=== PATIENT | female | born 1995 | race African-American/Black ===

== ENCOUNTER 2017-10-22 10:30 | Emergency (ER) | payer BC ==
[2017-10-22 10:38] VITALS: BP 119/81
--- NOTE | 2017-10-22 10:58 | ED ---
GI/ HPI - HPI Summary HPI Summary: This is scribe Vane Ball documenting for attending Vimal Black M.D. Pt is a 22 y/o F who presents to [facility] c/o vaginal bleeding. She states she recently started a new control patch 2 months ago, and since has been having symptoms. Her symptoms include sore hips, mood swings, elevated temperature, and increased urinary frequency/urgency. She believed she became after having sexual relations with her boyfriend 1 month ago, but all 7 tests were negative. LKMP 1 month ago, and she denies missing any periods. 3 days ago, she thought she had a miscarriage, because she had bad cramping then a clear blood clot with a string attached in her underwear 2 hours later. She then started bleeding heavily after. Pt states the test before beginning control was negative. She was sent here by her PCP. Pt denies any medications or smoking. - History of Current Complaint Chief Complaint: EDOBProblems Time Seen by Provider: 10/22/17 10:41 Stated Complaint: VAGINAL BLEEDING Hx Obtained From: Patient Onset/Duration: Started Days Ago - 3, Resolved Vaginal Bleeding Description: Clots Pain Intensity: 0 Location of Pain: None Associated Signs and Symptoms: Positive: Other: - Increased urinary frequency, mood swings, elevated temperature, sore hips Additional Signs & Symptoms: Positive: Vaginal Bleeding, Other: - 7 negative tests, recent new control patch Aggravating Factor(s): Nothing Alleviating Factor(s): Nothing - Allergy/Home Medications Allergies/Adverse Reactions: Allergies Allergy/AdvReac Type Severity Reaction Status Date / Time azithromycin [From Zithromax] Allergy Hives Verified 10/22/17 10:34 promethazine Allergy See Comment Verified 10/22/17 10:34 PMH/Surg Hx/FS Hx/Imm Hx History: Denies: Other Problems/Disorders - Neurological History: Reports: Hx Seizures Infectious Disease History: No Infectious Disease History: Reports: Traveled Outside the [place] in Last 30 Days - [place] - Family History Known Family History: Negative: Blood Disorder - Social History Alcohol Use: Occasionally Hx Substance Use: No Substance Use Type: Reports: None Hx Tobacco Use: No Smoking Status (MU): Never Smoked Tobacco Review of Systems Positive: Other - Mood swings, elevated temperature Positive: frequency, urgency, other - Vaginal bleeding and "clots" Positive: Arthralgia - Hips sore All Other Systems Reviewed And Are Negative: Yes Physical Exam - Summary Physical Exam Summary: Appearance: Well appearing, no pain distress Skin: warm, dry, reflects adequate perfusion Head/face: normal Eyes: EOMI, CLAIRE ENT: normal Neck: supple, non-tender Respiratory: CTA, breath sounds present Cardiovascular: RRR, pulses symmetrical Abdomen: non-tender, soft Bowel Sounds: present Musculoskeletal: normal, strength/ROM intact Neuro: normal, sensory motor intact, A&Ox3 Triage Information Reviewed: Yes Vital Signs On Initial Exam: Initial Vitals Temp Pulse Resp BP Pulse Ox 98.9 F 72 16 119/81 99 10/22/17 10:32 10/22/17 10:32 10/22/17 10:32 10/22/17 10:32 10/22/17 10:32 Vital Signs Reviewed: Yes Diagnostics - Vital Signs Vital Signs Temp Pulse Resp BP Pulse Ox 10/22/17 10:32 98.9 F 72 16 119/81 99 - Laboratory Lab Statement: Any lab studies that have been ordered have been reviewed, and results considered in the medical decision making process. GIGU Course/Dx - Course Course Of Treatment: Patient is be positive has a Quant hCG of 0. This is very unlikely to be related and much more likely to be a side effect of her new blood pressure medication. She is discharged to follow up with her doctor. - Diagnoses Provider Diagnoses: Menstrual irregularity Discharge - Sign-Out/Discharge Documenting (check all that apply): Patient Departure - Discharge - Discharge Plan Condition: Good Disposition: HOME Referrals: Adonis Zamora DO [Primary Care Provider] - Additional Instructions: Call me in 90 minutes to review results. Continue control patch. Return if worse, new symptoms or other concerns. - Billing Disposition and Condition Condition: GOOD Disposition: Home
== END 2017-10-22 11:21 | disposition home or self-care (01) ==
LOC: ED 10:30
DX: N92.6 Irregular menstruation, unspecified (principal); Z88.3 Allergy status to other anti-infective agents; Z88.8 Allergy status to other drugs, medicaments and biological substances
CPT/HCPCS: 36415; 84702; 86900; 86901; 99281

== ENCOUNTER 2018-11-13 15:53 | Emergency (ER) | payer BC ==
--- OUTSIDE RECORDS SUMMARY | 2018-11-13 16:08 | XMS REPORT | Summary of Care ---
:1995 Author Organization [facility] Address [address] [address] Care Team Providers Name Role Phone Adonis Zamora DO Primary Care Provider Reason for Referral Refer to Department Only (Routine) Status Reason Specialty Diagnoses / Referred By Referred To Procedures Contact Contact Pending Review NEUROLOGY Diagnoses Difficulty concentrating [place] of [place] [address] [place] [id number] Evaluate and Establish Treatment Plan (Routine) Status Reason Specialty Diagnoses / Referred By Referred To Procedures Contact Contact Pending Review PSYCHIATRY Diagnoses Difficulty concentrating History of seizure Adonis Zamora DO [address] [place] [address] Reason for Visit Reason Comments Numbness number toes on right foot; left foot more tingly; sleep cycle, lack of focus and will be starting school soon. Encounter Details Date Type Department Care Team Description 10/31/2018 Office Visit Adonis Benjamin DO Correia's neuroma of both feet (Primary Dx); [facility] Difficulty concentrating; [address] [place] [address] [place] [address] [phone] Allergies Active Allergy Reactions Severity Noted Date Comments Promethazine Other 09/18/2017 Seizures Azithromycin Rash 09/18/2017 documented as of this encounter (statuses as of 11/13/2018) Medications Medication Sig Dispensed Refills Start Date End Date Status Etonogestrel Inject 68 mg 0 Active (NEXPLANON) 68 MG beneath the Subcutaneous Implant skin. Norelgestromin-Eth Place 1 Patch 9 Patch 5 11/16/2017 10/31/2018 Discontinued Estradiol (XULANE) onto skin 150-35 MCG/24HR EVERY 7 DAYS. Transdermal PATCH WEEKLY (6mg-0.75mg)Indicati ons: Encounter for contraceptive management, unspecified type documented as of this encounter (statuses as of 11/13/2018) Active Problems Problem Noted Date Hypoglycemia Overview: symptomatic. eats frequenly to avoid this issue documented as of this encounter (statuses as of 11/13/2018) Immunizations Name Administration Dates Next Due Hepatitis A Vaccine-Adult 10/16/2017 MMR VACCINE 10/16/2017 TDAP Vaccine 10/16/2017 documented as of this encounter Social History Tobacco Use Types Packs/Day Years Used Date Never Smoker Smokeless Tobacco: Never Used Alcohol Use Drinks/Week oz/Week Comments Yes every other sunday: 6 drinks Sex Assigned at Date Recorded Not on file Job Start Date Occupation Industry Not on file Not on file Not on file Travel History Travel Start Travel End No recent travel history available. documented as of this encounter Last Filed Vital Signs Vital Sign Reading Time Taken Comments Blood Pressure 118/58 10/31/2018 2:52 PM EDT Pulse 78 10/31/2018 2:52 PM EDT Temperature - - Respiratory Rate - - Oxygen Saturation 99% 10/31/2018 2:52 PM EDT Inhaled Oxygen Concentration - - Weight 102.4 kg (225 lb 12.8 oz) 10/31/2018 2:52 PM EDT Height 167.6 cm (5' 6") 10/31/2018 2:52 PM EDT Body Mass Index 36.45 10/31/2018 2:52 PM EDT documented in this encounter Patient Instructions Patient InstructionsAdonis Zamora DO - 10/31/2018 2:40 PM EDTRecommend trial of over the counter inserts: Sole ( found at [employer]), Spenco/Vasyli (found at [employer]), Superfeet (found at [employer]); make sure to be able to try these on in the store. documented in this encounter Progress Notes Adonis Zamora DO - 10/31/2018 2:40 PM EDT PATIENT: Karlene Encarnacion : 1995 DATE OF SERVICE: 10/31/2018 CHIEF COMPLAINT: Chief Complaint Patient presents with Numbness number toes on right foot; left foot more tingly; sleep cycle, lack of focus and will be starting school soon. Subjective HISTORY OF PRESENT ILLNESS: Karlene Encarnacion is a 23-y.o. female. HPI About 2 weeks ago went to visit [place] Drank a lot and was wearing heels for few days (not used to it) and then had burning pain and numbness in 2nd and 3rd toes both sides Stopped drinking and wearing wide shoes and it has almost diminished in left and right side 50% less No falls or traumas No swelling or redness of foot No diabetes from prior blood work. 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 eats frequenly to avoid this issue Petit mal convulsion (HCC) cleared grade 6. none since then Family History Problem Relation Age of Onset Cancer Maternal Grandfather pancreatic Current Outpatient Medications Medication Sig Etonogestrel (NEXPLANON) 68 MG Subcutaneous Implant Inject 68 mg beneath the skin. No current facility-administered medications for this visit. Allergies Allergen Reactions Promethazine Other Seizures Zithromax [Azithromycin] Rash Social History Socioeconomic History Marital status: Single Spouse name: Not on file Number of children: Not on file Years of education: Not on file Highest education level: Not on file Occupational History Not on file Social Needs Financial resource strain: Not on file Food insecurity: Worry: Not on file Inability: Not on file Transportation needs: Medical: Not on file Non-medical: Not on file Tobacco Use Smoking status: Never Smoker Smokeless tobacco: Never Used Substance and Sexual Activity Alcohol use: Yes Comment: every other sunday: 6 drinks Drug use: No Sexual activity: Yes Partners: Male, Female Lifestyle Physical activity: Days per week: Not on file Minutes per session: Not on file Stress: Not on file Relationships Social connections: Talks on phone: Not on file Gets together: Not on file Attends mosque service: Not on file Active member of club or organization: Not on file Attends meetings of clubs or organizations: Not on file Relationship status: Not on file Intimate partner violence: Fear of current or ex partner: Not on file Emotionally abused: Not on file Physically abused: Not on file Forced sexual activity: Not on file Other Topics Concern Not on file 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 Gastrointestinal: Negative for abdominal pain. Objective PHYSICAL EXAM: VITALS: BP 118/58 (BP Location: Left arm, Patient Position: Sitting) | Pulse 78 | Ht 5' 6" (1.676m) | Wt 225 lb 12.8 oz (102.4 kg) | SpO2 99% | BMI 36.45 kg/m Body mass index is 36.45 kg/m. Physical Exam Constitutional: She appears well-developed and well-nourished. No distress. Skin: She is not diaphoretic. Monofilament test shows intact sensation in feet. No joint tenderness, edema, cyanosis of feet Radial pulse palpable both sides No pain today in feet today on palpation ASSESSMENT / IMPRESSION: ICD-9-CM ICD-10-CM 1. 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 Difficulty concentrating 799.51 R41.840 REFER TO PSYCHIATRY REFER TO NEUROLOGY 3. History of seizure V12.49 Z87.898 REFER TO PSYCHIATRY REFER TO NEUROLOGY Correia neuroma by history. Already getting better. Try inserts to expedite recovery. Need to determine if add or adhd. If it is then is it safe to do medications because the effective ones can lower seizure threshold. Therefore, I am referring to both psych and neurology to coordinate this care. Plan Patient Instructions Recommend trial of over the counter inserts: Sole ( found at [employer]), Spenco/ Vasyli (found at [employer]), Superfeet (found at [employer]); make sure to be able to try these on in the store. Author: Adonis Zamora DO 11/13/2018 14:01 documented in this encounter Plan of Treatment Name Type Priority Associated Diagnoses Order Schedule REFER TO PSYCHIATRY Referral Routine Difficulty concentrating Expected: 11/13/2018, History of seizure Expires: 11/14/2019 REFER TO NEUROLOGY Referral Routine Difficulty concentrating Expected: 11/13/2018, History of seizure Expires: 11/14/2019 Health Maintenance Due Date Last Done Comments CHLAMYDIA SCREENING 1997 PAP SMEAR 1997 DEPRESSION SCREENING 2009 HIV SCREENING 2012 HPV IMMUNIZATION SERIES (1 - Female 2012 3-dose series) INFLUENZA VACCINE (#1) 2018 MENINGOCOCCAL VACCINE IMM Aged Out No longer eligible based on patient's age to complete this topic PNEUMOCOCCAL 0-64 YRS Aged Out No longer eligible based on patient's age to complete this topic documented as of this encounter Results Not on filedocumented in this encounter Visit Diagnoses Diagnosis Correia's neuroma of both feet - Primary Difficulty concentrating Other general symptoms History of seizure documented in this encounter Insurance Payer Benefit Plan / Subscriber ID Effective Dates Phone Address Type Group [facility] xxxxxxxxxxxx 2016-Present Blue [employer]/Blue [employer] (Work) documented as of this encounter
[2018-11-13 18:12] LABS: ABS Basophils 0.1 10^3/ul (0-0.2); ABS Lymphocytes 2.2 10^3/ul (1.0-4.8); ABS Monocytes 0.6 10^3/ul (0-0.8); Eosinophil % 0.2 %; Hematocrit 41 % (35-47); Hemoglobin 13.5 g/dL (12.0-16.0); Lymphocyte % 27.9 %; Mean Corpuscular HGB Conc 33 g/dL (31-36); Mean Corpuscular Hemoglobin 26 pg (27-31); Mean Corpuscular Volume 79 fL (80-97); Mean Platelet Volume 7.8 fL (7.4-10.4); Platelet Count 271 10^3/uL (150-450); Red Blood Count 5.14 10^6 /uL (3.70-4.87); Red Cell Distribution Width 15 % (10-15); White Blood Count 7.9 10^3/uL (3.5-10.8)
[2018-11-13 18:31] LABS: ALT 22 U/L (7-52); AST 19 U/L (13-39); Albumin 4.4 g/dL (3.2-5.2); Albumin/Globulin Ratio 1.2 (1-3); Alkaline Phosphatase 109 U/L (34-104); Anion Gap 5 mmol/L (2-11); BUN/Creatinine Ratio 12.2 (8-20); Blood Urea Nitrogen 10 mg/dL (6-24); C Reactive Protein 9.63 mg/L (<8.01); CO2 Carbon Dioxide 28 mmol/L (22-32); Calcium 9.4 mg/dL (8.6-10.3); Chloride 104 mmol/L (101-111); EGFR African American 106.5 (>60); Globulin 3.6 g/dL (2-4); Glucose 112 mg/dL (70-100); Magnesium 1.9 mg/dL (1.9-2.7); Potassium 4.2 mmol/L (3.5-5.0); Sodium 137 mmol/L (135-145)
[2018-11-13 18:36] LABS: HCG Pregnancy < 0.60 mIU/mL
[2018-11-13 18:42] LABS: Alcohol < 10 mg/dL (<10)
[2018-11-13 18:55] LABS: Urine Bacteria 1+ (Absent); Urine Red Blood Cell Trace(0-2/hpf) (Absent); Urine Squamous Epithelial Cell Present (Absent); Urine White Blood Cell Trace(0-5/hpf) (Absent)
[2018-11-13 18:56] LABS: TSH (Thyroid Stimulating Horm) 0.83 mcIU/mL (0.34-5.60)
[2018-11-13 19:01] LABS: Urine Appearance Cloudy; Urine Bilirubin Negative (Negative); Urine Blood 1+ (Negative); Urine Color Straw; Urine Glucose Negative (Negative); Urine Ketones Negative (Negative); Urine Nitrite Negative (Negative); Urine Protein Negative (Negative); Urine Specific Gravity 1.009 (1.010-1.030); Urine Urobilinogen Negative (Negative)
[2018-11-13 19:17] LABS: Urine Benzodiazepine Screen None Detected (None Detect); Urine Opiates Screen None Detected (None Detect)
--- NOTE | 2018-11-13 19:52 | ED ---
Complex/Multi-Sys Presentation - HPI Summary HPI Summary: Patient complains of constant twitching of left eyelid 2 days, twitching of intermittent bilateral upper extremities and bilateral lower extremities 2 days , lightheadedness with standing up from seated position starting yesterday. Denies any other pain injury or symptoms. History of seizures when she was a child. No seizure for years. Not taking medication for seizures. Denies other medical history. - History Of Current Complaint Chief Complaint: EDGeneral Time Seen by Provider: 11/13/18 17:51 Hx Obtained From: Patient Onset/Duration: Sudden Onset, Lasting Days Timing: Constant, Intermittent, Lasting: Severity Currently: Mild Severity Initially: Mild Location: Negative - Allergies/Home Medications Allergies/Adverse Reactions: Allergies Allergy/AdvReac Type Severity Reaction Status Date / Time azithromycin [From Zithromax] Allergy Hives Verified 11/13/18 16:04 promethazine Allergy See Comment Verified 11/13/18 16:04 Home Medications: Home Medications Etonogestrel [Nexplanon] 68 mg IMPLANT SEE INSTRUCTIONS 11/13/18 [History Confirmed 11/13/18] PMH/Surg Hx/FS Hx/Imm Hx Endocrine/Hematology History: Denies: Hx Anticoagulant Therapy Cardiovascular History: Denies: Hx Pacemaker/ICD History: Denies: Hx Dialysis, Other Problems/Disorders - Sensory History: Denies: Hx Legally Blind Opthamlomology History: Denies: Hx Eye Prosthesis EENT History: Denies: Hx Deafness Neurological History: Reports: Hx Seizures Infectious Disease History: No Infectious Disease History: Denies: Traveled Outside the [place] in Last 30 Days - Family History Known Family History: Negative: Blood Disorder - Social History Alcohol Use: None Hx Substance Use: No Substance Use Type: Reports: Marijuana Hx Tobacco Use: No Smoking Status (MU): Light Every Day Tobacco Smoker Review of Systems Positive: Fatigue Eyes: Negative ENT: Negative Cardiovascular: Negative Respiratory: Negative Gastrointestinal: Negative Genitourinary: Negative Musculoskeletal: Negative Skin: Negative Positive: Paresthesia Psychological: Normal All Other Systems Reviewed And Are Negative: Yes Physical Exam - Summary Physical Exam Summary: Neuro exam normal. Lung sounds clear to auscultation bilaterally. Abdomen soft nontender. No twitching of eyelid, bilateral upper extremities or bilateral lower extremities observed during stay in ED. Triage Information Reviewed: Yes Vital Signs On Initial Exam: Initial Vitals Temp Pulse Resp BP Pulse Ox 97.0 F 80 16 146/96 99 11/13/18 15:58 11/13/18 15:58 11/13/18 15:58 11/13/18 15:58 11/13/18 15:58 Vital Signs Reviewed: Yes Appearance: Positive: Well-Appearing Skin: Positive: Warm Head/Face: Positive: Normal Head/Face Inspection Eyes: Positive: Normal Neck: Positive: Supple Respiratory/Lung Sounds: Positive: Clear to Auscultation Cardiovascular: Positive: Normal Abdomen Description: Positive: Nontender Musculoskeletal: Positive: Normal Neurological: Positive: Normal Psychiatric: Positive: Normal AVPU Assessment: Alert - Abernathy Coma Scale Best Eye Response: 4 - Spontaneous Best Motor Response: 6 - Obeys Commands Best Verbal Response: 5 - Oriented Coma Scale Total: 15 Diagnostics - Vital Signs Vital Signs Temp Pulse Resp BP Pulse Ox 11/13/18 19:00 86 97 11/13/18 18:28 82 117/82 98 11/13/18 18:24 83 130/91 11/13/18 18:22 130/91 11/13/18 18:20 86 133/82 99 11/13/18 18:18 85 130/73 98 11/13/18 18:17 74 99 11/13/18 17:57 123/93 11/13/18 15:58 97.0 F 80 16 146/96 99 - Laboratory Lab Results: Lab Results 11/13/18 11/13/18 11/13/18 Range/Units 18:06 18:06 18:43 WBC 7.9 (3.5-10.8) 10^3/uL RBC 5.14 H (3.70-4.87) 10^6 /uL Hgb 13.5 (12.0-16.0) g/dL Hct 41 (35-47) % MCV 79 L (80-97) fL MCH 26 L (27-31) pg MCHC 33 (31-36) g/dL RDW 15 (10-15) % Plt Count 271 (150-450) 10^3/uL MPV 7.8 (7.4-10.4) fL Neut % (Auto) 63.9 % Lymph % (Auto) 27.9 % [place] % (Auto) 7.2 % Eos % (Auto) 0.2 % Baso % (Auto) 0.8 % Absolute Neuts (auto) 5.0 (1.5-7.7) 10^3/ul Absolute Lymphs (auto) 2.2 (1.0-4.8) 10^3/ul Absolute Monos (auto) 0.6 (0-0.8) 10^3/ul Absolute Eos (auto) 0.0 (0-0.6) 10^3/ul Absolute Basos (auto) 0.1 (0-0.2) 10^3/ul Absolute Nucleated RBC 0.0 10^3/ul Nucleated RBC % 0.0 Sodium 137 (135-145) mmol/L Potassium 4.2 (3.5-5.0) mmol/L Chloride 104 (101-111) mmol/L Carbon Dioxide 28 (22-32) mmol/L Anion Gap 5 (2-11) mmol/L BUN 10 (6-24) mg/dL Creatinine 0.82 (0.51-0.95) mg/dL Est GFR ( Amer) 106.5 (>60) Est GFR (Non-Af Amer) 88.0 (>60) BUN/Creatinine Ratio 12.2 (8-20) Glucose 112 H (70-100) mg/dL Calcium 9.4 (8.6-10.3) mg/dL Magnesium 1.9 (1.9-2.7) mg/dL Total Bilirubin 0.40 (0.2-1.0) mg/dL AST 19 (13-39) U/L ALT 22 (7-52) U/L Alkaline Phosphatase 109 H (34-104) U/L C-Reactive Protein 9.63 H (<8.01) mg/L Total Protein 8.0 (6.4-8.9) g/dL Albumin 4.4 (3.2-5.2) g/dL Globulin 3.6 (2-4) g/dL Albumin/Globulin Ratio 1.2 (1-3) Vitamin B12 424 (180-914) pg/mL TSH 0.83 (0.34-5.60) mcIU/mL Beta HCG, Quant < 0.60 mIU/mL Urine Color Straw Urine Appearance Cloudy Urine pH 7.0 (5-9) Ur Specific [place] 1.009 L (1.010-1.030) Urine Protein Negative (Negative) Urine Ketones Negative (Negative) Urine Blood 1+ A (Negative) Urine Nitrate Negative (Negative) Urine Bilirubin Negative (Negative) Urine Urobilinogen Negative (Negative) Ur Leukocyte Esterase Negative (Negative) Urine WBC (Auto) Trace(0-5/hpf) (Absent) Urine RBC (Auto) Trace(0-2/hpf) (Absent) Ur Squamous Epith Cells Present A (Absent) Urine Bacteria 1+ A (Absent) Urine Glucose Negative (Negative) Urine Ascorbic Acid Not Reportable Urine Opiates Screen (None Detect) Ur Barbiturates Screen (None Detect) Ur Phencyclidine Scrn (None Detect) Ur Amphetamines Screen (None Detect) U Benzodiazepines Scrn (None Detect) Urine Cocaine Screen (None Detect) U Cannabinoids Screen (None Detect) Serum Alcohol < 10 (<10) mg/dL 11/13/18 Range/Units 18:43 WBC (3.5-10.8) 10^3/uL RBC (3.70-4.87) 10^6 /uL Hgb (12.0-16.0) g/dL Hct (35-47) % MCV (80-97) fL MCH (27-31) pg MCHC (31-36) g/dL RDW (10-15) % Plt Count (150-450) 10^3/uL MPV (7.4-10.4) fL Neut % (Auto) % Lymph % (Auto) % [place] % (Auto) % Eos % (Auto) % Baso % (Auto) % Absolute Neuts (auto) (1.5-7.7) 10^3/ul Absolute Lymphs (auto) (1.0-4.8) 10^3/ul Absolute Monos (auto) (0-0.8) 10^3/ul Absolute Eos (auto) (0-0.6) 10^3/ul Absolute Basos (auto) (0-0.2) 10^3/ul Absolute Nucleated RBC 10^3/ul Nucleated RBC % Sodium (135-145) mmol/L Potassium (3.5-5.0) mmol/L Chloride (101-111) mmol/L Carbon Dioxide (22-32) mmol/L Anion Gap (2-11) mmol/L BUN (6-24) mg/dL Creatinine (0.51-0.95) mg/dL Est GFR ( Amer) (>60) Est GFR (Non-Af Amer) (>60) BUN/Creatinine Ratio (8-20) Glucose (70-100) mg/dL Calcium (8.6-10.3) mg/dL Magnesium (1.9-2.7) mg/dL Total Bilirubin (0.2-1.0) mg/dL AST (13-39) U/L ALT (7-52) U/L Alkaline Phosphatase (34-104) U/L C-Reactive Protein (<8.01) mg/L Total Protein (6.4-8.9) g/dL Albumin (3.2-5.2) g/dL Globulin (2-4) g/dL Albumin/Globulin Ratio (1-3) Vitamin B12 (180-914) pg/mL TSH (0.34-5.60) mcIU/mL Beta HCG, Quant mIU/mL Urine Color Urine Appearance Urine pH (5-9) Ur Specific [place] (1.010-1.030) Urine Protein (Negative) Urine Ketones (Negative) Urine Blood (Negative) Urine Nitrate (Negative) Urine Bilirubin (Negative) Urine Urobilinogen (Negative) Ur Leukocyte Esterase (Negative) Urine WBC (Auto) (Absent) Urine RBC (Auto) (Absent) Ur Squamous Epith Cells (Absent) Urine Bacteria (Absent) Urine Glucose (Negative) Urine Ascorbic Acid Urine Opiates Screen None detected (None Detect) Ur Barbiturates Screen None detected (None Detect) Ur Phencyclidine Scrn None detected (None Detect) Ur Amphetamines Screen None detected (None Detect) U Benzodiazepines Scrn None detected (None Detect) Urine Cocaine Screen None detected (None Detect) U Cannabinoids Screen None detected (None Detect) Serum Alcohol (<10) mg/dL Result Diagrams: 11/13/18 18:06 11/13/18 18:06 Lab Statement: Any lab studies that have been ordered have been reviewed, and results considered in the medical decision making process. Complex Multi-Symp Course/Dx Course Of Treatment: Patient complains of constant twitching of left eyelid 2 days, twitching of intermittent bilateral upper extremities and bilateral lower extremities 2 days, lightheadedness with standing up from seated position starting yesterday. Denies any other pain injury or symptoms. History of seizures when she was a child. No seizure for years. Not taking medication for seizures. Denies other medical history. Vital signs within normal limits. Labs unremarkable. B12 normal. EKG sinus rhythm. Orthostatic vital signs normal. Advised follow-up with neurology. - Diagnoses Provider Diagnoses: Eye muscle twitches, Numbness and tingling of both feet, Muscle twitching Discharge - Sign-Out/Discharge Documenting (check all that apply): Patient Departure Patient Received Moderate/Deep Sedation with Procedure: No - Discharge Plan Condition: Stable Disposition: HOME Patient Education Materials: Muscle Spasm (ED) Referrals: Adonis Zamora DO [Primary Care Provider] - David Breen MD [Medical Doctor] - Additional Instructions: Follow-up with neurology Dr. Olmos for further evaluation of numbness and tingling in your feet and twitching of muscles in your eyelid, arms and legs. - Billing Disposition and Condition Condition: STABLE Disposition: Home - Attestation Statements Provider Attestation: I am administratively signing this document. I was available for consultation for this patient. I did not evaluate the patient or participate in any medical decision making or disposition decisions unless I am specifically named in the chart as having consulted on the patient. If I have consulted on the patient, please see my own ED note on the patient encounter. Emily Gann MD
[2018-11-13 20:03] VITALS: BP 122/78
== END 2018-11-13 21:12 | disposition home or self-care (01) ==
LOC: ED 15:53
DX: H52.532 Spasm of accommodation, left eye (principal); R20.0 Anesthesia of skin; R20.2 Paresthesia of skin; R25.3 Fasciculation; M62.838 Other muscle spasm; I48.92 Unspecified atrial flutter; F17.200 Nicotine dependence, unspecified, uncomplicated
CPT/HCPCS: 36415; 80053; 80307; 80320; 81003; 81015; 82607; 83735; 84443; 84702; 85025; 86140; 87086; 93005; 99284; G0480